=== PATIENT | female | born 1990 | race Caucasian/White ===

== ENCOUNTER 2017-03-29 14:26 | Emergency (ER) | payer OTHER, MEDICAID ==
[2017-03-29 14:47] LABS: URINE APPEARANCE CLEAR; URINE BILIRUBIN NEGATIVE (NEGATIVE); URINE BLOOD NEGATIVE (NEGATIVE); URINE COLOR YELLOW; URINE GLUCOSE (UA) NEGATIVE (NEGATIVE); URINE KETONE NEGATIVE (NEGATIVE); URINE LEUKOCYTE ESTERASE NEGATIVE (NEGATIVE); URINE NITRITE NEGATIVE (NEGATIVE); URINE PROTEIN NEGATIVE (NEGATIVE)
--- NOTE | 2017-03-29 14:52 | Emergency Department Record ---
History of Present Illness - General Chief complaint: Female Urogenital Problem Stated complaint: PAIN WHEN URINATING Time Seen by Provider: 03/29/17 14:46 Source: Patient Mode of Arrival: Ambulatory Limitations: No limitations - History of Present Illness Initial comments: 26 yo female presents with discomfort with urination. Onset was March 25 after rough intercourse with her . No fevers or chills. No back pain. No vaginal bleeding. She is having some burning and itching as well. No concern for STD. No NVD. No lesions. MD Complaint: Dysuria Onset/Timin -: Days(s) Location: [place], Perineum Severity scale (1-10): 4 Quality: Burning Consistency: Constant Improves with: None Worsens with: [place], Urination Patient : No Associated Symptoms: Denies other symptoms - Related Data Previous Rx's Medication Instructions Recorded Phenazopyridine HCl [Pyridium] 200 mg PO TID #6 tab 03/29/17 Allergies Allergy/AdvReac Type Severity Reaction Status Date / Time Iodinated Contrast- Oral and Allergy HIVES Verified 08/14/16 15:49 IV Dye [Iodinated Contrast Media - IV Dye] Travel Screening - Travel/Exposure Within Last 30 Days Have you traveled within the last 30 days?: No Review of Systems Constitutional: Denies: Chills, Fever, Malaise Eyes: Denies: Eye discharge ENT: Denies: Congestion, Throat pain Respiratory: Denies: Cough Cardiovascular: Denies: Chest pain, Syncope Endocrine: Denies: Fatigue Gastrointestinal: Denies: Abdominal pain, Diarrhea, Nausea, Vomiting Genitourinary: Reports: Dysuria, Frequency, Urgency, Other (itching and burning) . Denies: Discharge, Hematuria, Incontinence, Retention Musculoskeletal: Denies: Arthralgia, Back pain Skin: Denies: Bruising, Change in color, Rash Neurological: Denies: Headache Psychiatric: Denies: Anxiety Hematological/Lymphatic: Denies: Easy bleeding, Easy bruising, Swollen glands Past Medical History - SOCIAL HISTORY Smoking Status: Current every day smoker Alcohol Use: None Drug Use: None - RESPIRATORY Hx Respiratory Disorders: Yes Hx Asthma: Yes - CARDIOVASCULAR Hx Cardio Disorders: No - NEURO Hx Neuro Disorders: No - GI Hx GI Disorders: No - Hx Genitourinary Disorders: No - ENDOCRINE Hx Endocrine Disorders: No - MUSCULOSKELETAL Hx Musculoskeletal Disorders: No - PSYCH Hx Psych Problems: No - HEMATOLOGY/ONCOLOGY Hx Hematology/Oncology Disorders: No Family Medical History Any Significant Family History?: Yes Hx Cancer: Grandparents Hx Stroke: Grandparents Physical Exam - General General Appearance: Alert, Oriented x3, Cooperative, No acute distress Limitations: No limitations - Head Head exam: Normal inspection - Eye Eye exam: Normal appearance - ENT ENT exam: Normal exam Ear exam: Normal external inspection Nasal Exam: Normal inspection - Neck Neck exam: Normal inspection - GI/Abdominal GI/Abdominal exam: Soft. negative: Tenderness - Rectal Rectal exam: Deferred - exam: Normal bimanual exam, Normal external exam, Normal speculum exam, Vaginal discharge (minimal thin white). negative: Abnormal external exam, Adnexal mass (L), Adnexal mass (R), Adnexal tenderness (L), Adnexal tenderness ( R), Cervical discharge, cervical motion tenderness, Vaginal bleeding, Vaginal erythema - Extremities Extremities exam: Normal inspection - Back Back exam: Denies: CVA tenderness (R), CVA tenderness (L) - Neurological Neurological exam: Alert, Oriented X3 - Psychiatric Psychiatric exam: Normal affect, Normal mood - Skin Skin exam: Dry, Intact, Normal color, Warm Course Vital Signs 03/29/17 14:33 Temperature 98.3 F Pulse Rate 70 Respiratory 20 Rate Blood Pressure 108/62 - Reevaluation(s) Reevaluation #1: UA is normal 03/29/17 14:53 Reevaluation #2: Wet prep is negative 03/29/17 15:17 Disposition Disposition: Discharge Clinical Impression: Dysuria Vaginitis Qualifiers: Chronicity: acute Qualified Code(s): N76.0 - Acute vaginitis Disposition: Home, Self-Care Condition: (1) Good Instructions: Dysuria (ED) Additional Instructions: Stay well hydrated Return if worse, fever, pain, blood in the urine or any new concerns Follow up with your doctor or OBGYN this week For the next 2 days try the Pyridum for discomfort with urination Prescriptions: Phenazopyridine HCl [Pyridium] 200 mg PO TID #6 tab Forms: Patient Portal Access Time of Disposition: 15:20 Quality - Quality Measures Quality Measures: N/A - Blood Pressure Screening View Details: Yes Blood Pressure Classification: Normal BP Reading Systolic Measurement: 108 Diastolic Measurement: 62 Screening for High Blood Pressure: < Normal BP, F/U Not Required > [G8783] Normal BP Follow-up Interventions: No follow-up required
[2017-03-31 17:01] LABS: GC SPECIMEN TYPE Vaginal
== END 2017-03-29 15:43 | disposition home or self-care (01) ==
LOC: ER 14:26
DX: N76.0 Acute vaginitis (principal); R30.0 Dysuria
CPT/HCPCS: 99284 ×2; 81003; 81025; Q0111; 87210

== ENCOUNTER 2017-06-14 00:41 | Emergency (ER) | payer OTHER, MEDICAID ==
[2017-06-14] MEDS ORDERED: KETOROLAC 30 MG/ML VIAL IVP ONE (00:51)
--- NOTE | 2017-06-14 00:55 | Emergency Department Record ---
History of Present Illness - General Stated Complaint: "CYST RUPTERING" Time Seen by Provider: 06/14/17 00:50 Source: Patient Mode of Arrival: Ambulatory Limitations: No limitations - History of Present Illness Initial Comments: 26 yo female presents to ED stating that she believes that her "ovarian cyst is rupturing". Patient reports that her symptoms began approximately 1 hours prior to arrival, reports pain was sudden-onset. Patient reports similar symptoms with previous cysts. Patient denies abnormal vaginal discharge, urinary symptoms, fever, nausea, vomiting, or change in stools. Patient denies previous abdominal surgeries as well. MD Complaint: Abdominal pain Onset/Timin -: Hour(s) Location: Suprapubic Radiation: None Migration to: No migration Severity: Moderate Quality: Sharp, Stabbing Consistency: Constant Improves With: Nothing Worsens With: Movement Associated Symptoms: Denies other symptoms Treatments Prior to Arrival: NSAIDs - Related Data Patient : No Previous Rx's Medication Instructions Recorded Ibuprofen [Motrin] 800 mg PO Q6H PRN #30 tab 06/14/17 Allergies Allergy/AdvReac Type Severity Reaction Status Date / Time Iodinated Contrast- Oral and Allergy HIVES Verified 08/14/16 15:49 IV Dye [Iodinated Contrast Media - IV Dye] Review of Systems Constitutional: Denies: Chills, Fever, Malaise, Night sweats Eyes: Denies: Eye discharge, Eye pain ENT: Denies: Congestion, Ear pain, Epistaxis Respiratory: Denies: Cough, Dyspnea Cardiovascular: Denies: Chest pain, Dyspnea on exertion Endocrine: Denies: Fatigue, Heat or cold intolerance Gastrointestinal: Reports: Abdominal pain. Denies: Constipation, Nausea, Vomiting Genitourinary: Denies: Dysuria, Frequency, Incontinence, Retention Musculoskeletal: Denies: Arthralgia, Back pain, Gout, Joint swelling Skin: Denies: Bruising, Change in color Neurological: Denies: Abnormal gait, Confusion, Headache, Seizure Psychiatric: Denies: Anxiety Hematological/Lymphatic: Denies: Anemia, Blood Clots Past Medical History - SOCIAL HISTORY Smoking Status: Current every day smoker Drug Use: None - RESPIRATORY Hx Respiratory Disorders: Yes Hx Asthma: Yes - CARDIOVASCULAR Hx Cardio Disorders: No - NEURO Hx Neuro Disorders: No - GI Hx GI Disorders: No - Hx Genitourinary Disorders: No - ENDOCRINE Hx Endocrine Disorders: No - MUSCULOSKELETAL Hx Musculoskeletal Disorders: No - PSYCH Hx Psych Problems: No - HEMATOLOGY/ONCOLOGY Hx Hematology/Oncology Disorders: No Family Medical History Hx Cancer: Grandparents Hx Stroke: Grandparents Physical Exam - General General Appearance: Alert, Oriented x3, Cooperative, Mild distress Limitations: No limitations - Head Head exam: Atraumatic, Normocephalic, Normal inspection Head exam detail: negative: Abrasion, Contusion, Mann's sign, General tenderness, Hematoma, Laceration - Eye Eye exam: Normal appearance. negative: Conjunctival injection, Periorbital swelling, Periorbital tenderness, Scleral icterus - ENT Ear exam: negative: Auricular hematoma, Auricular trauma Nasal Exam: negative: Active bleeding, Discharge, Dried blood, Foreign body Mouth exam: negative: Drooling, Laceration, Muffled voice, Tongue elevation - Neck Neck exam: Normal inspection. negative: Meningismus, Tenderness - Respiratory Respiratory exam: Normal lung sounds bilaterally. negative: Rales, Respiratory distress, Rhonchi, Stridor - Cardiovascular Cardiovascular Exam: Regular rate, Normal rhythm, Normal heart sounds - GI/Abdominal GI/Abdominal exam: Soft, Tenderness, Other (TTP LLQ>RLQ on examination, no rebound or guarding present). negative: Rebound, Rigid - Rectal Rectal exam: Deferred - exam: Deferred - Extremities Extremities exam: Normal inspection. negative: Calf tenderness, Pedal edema, Tenderness - Back Back exam: Denies: CVA tenderness (R), CVA tenderness (L) - Neurological Neurological exam: Alert, Normal gait, Oriented X3 - Psychiatric Psychiatric exam: Normal affect, Normal mood - Skin Skin exam: Normal color. negative: Abrasion Type of lesion: negative: abrasion Course - Reevaluation(s) Reevaluation #1: 06/14/17 02:09 Labs reviewed and are grossly unremarkable for an acute process. CT Abdomen and Pelvis: Infiltration of the fat along the paracolic gutters, small amount FF pelvis, trace FF Baca's pouch, correlate for PID. Patient was updated on all results and reports significant improvement in her pain symptoms, reviewed all laboratory and CT findings with the patient. Offered pelvic examination to exclude the possibility of PID, patient declined stating that her symptoms are likely the result of a ruptured cyst, denies vaginal discharge or pain symptoms. Patient appears stable for discharge at this time. Medical Decision Making - Lab Data Result diagrams: 06/14/17 01:08 06/14/17 01:08 Disposition Disposition: Discharge Clinical Impression: Pelvic pain Ovarian cyst Qualifiers: Laterality: unspecified laterality Qualified Code(s): N83.209 - Unspecified ovarian cyst, unspecified side Disposition: Home, Self-Care Condition: (2) Stable Instructions: Pelvic Pain in Women (ED) Additional Instructions: Return to ED if your symptoms worsen or if you have any concerns. Motrin 800 mg as directed. Follow-up with your family doctor/OB in 1-3 days as directed. Prescriptions: Ibuprofen [Motrin] 800 mg PO Q6H PRN #30 tab PRN Reason: Pain - Moderate (5-7) Time of Disposition: 02:13 Quality - Quality Measures Quality Measures: N/A - Blood Pressure Screening Does Patient Have Any of the Following: No Blood Pressure Classification: Normal BP Reading Systolic Measurement: 112 Diastolic Measurement: 66 Screening for High Blood Pressure: < Normal BP, F/U Not Required > [G8783]
[2017-06-14] MEDS ORDERED: 0.9 % SODIUM CHLORIDE 1000ML 1,000 ML IV SCH (01:00)
[2017-06-14 01:15] LABS: BASO % 0.3 % (0-6); EOS % 2.9 % (0-6); HEMATOCRIT 38.6 % (35.0-47.0); HEMOGLOBIN 13.5 gm/dl (11.6-16.0); LYMPH % 42.1 % (16-45); MEAN CELL VOLUME 97.5 fl (81-97); MEAN CORPUSCULAR HEMOGLOBIN 34.1 pg (27-33); MONO % 7.7 % (0-9); PLATELET COUNT 218 K/uL (130-400); RED BLOOD COUNT 3.96 M/uL (3.80-5.40); RED CELL DISTRIBUTION WIDTH 12.8 % (11.5-14.5); WHITE BLOOD COUNT W/O DIFF 7.9 K/uL (4.2-12.2)
[2017-06-14 01:20] LABS: URINE APPEARANCE CLEAR; URINE BILIRUBIN NEGATIVE (NEGATIVE); URINE BLOOD NEGATIVE (NEGATIVE); URINE COLOR YELLOW; URINE GLUCOSE (UA) NEGATIVE (NEGATIVE); URINE KETONE NEGATIVE (NEGATIVE); URINE LEUKOCYTE ESTERASE NEGATIVE (NEGATIVE); URINE NITRITE NEGATIVE (NEGATIVE); URINE PROTEIN NEGATIVE (NEGATIVE); URINE UROBILINOGEN 0.2 E.U./dL (0.20 - 1.00)
[2017-06-14 01:21] LABS: HCG,QUALITATIVE URINE NEGATIVE (NEGATIVE)
[2017-06-14 01:33] LABS: ALB/GLOB RATIO 1.6 (1.1-1.8); ALBUMIN 4.2 g/dL (4.0-5.0); ALKALINE PHOSPHATASE 62 U/L (35-104); ALT/SGPT 12 U/L (<33); AST/SGOT 12 U/L (10.0-35.0); BLOOD UREA NITROGEN 9 mg/dL (6-20); CREATININE 0.4 mg/dL (0.5-0.9); EST GLOMERULAR FILTRATION RATE > 60 mL/min; GLUCOSE,RANDOM 93 mg/dL (74-109); TOTAL PROTEIN 6.8 g/dL (6.6-8.7)
--- NOTE | 2017-06-15 15:50 | CT SCAN REPORT ---
DATE: 06/14/2017 at 1:35 a.m. EXAM: CT SCAN OF THE ABDOMEN AND PELVIS WITHOUT CONTRAST. HISTORY: Lower abdominal pain and pelvic pain for the past two hours. TECHNIQUE: Standard CT imaging of the abdomen and pelvis was performed without contrast. COMPARISON: 08/04/2016. FINDINGS: The lung bases are clear. The liver, gallbladder, biliary tree, pancreas, spleen, and adrenal glands are normal. The kidneys and ureters are normal. The aorta is normal in caliber. There is no retroperitoneal lymphadenopathy. The large and small bowel loops, including the appendix, are normal. There is no pneumoperitoneum. There is a complex cyst within the left ovary measuring 3.7 x 3.3 cm. This likely represents a hemorrhagic cyst. A small amount of associated fluid is present within the posterior cul de sac. An IUD is present. The right ovary is normal. The urinary bladder is unremarkable. There are no acute osseus abnormalities. IMPRESSION: 1. A 3.7 X 3.3 CM COMPLEX CYST WITHIN THE LEFT OVARY LIKELY REPRESENTING A HEMORRHAGIC CYST. 2. MILD FREE FLUID WITHIN THE POSTERIOR CUL DE SAC. 3. THE REMAINING PORTIONS OF THE ABDOMEN AND PELVIS ARE NORMAL. JOB NUMBER: [id number] MTDD
== END 2017-06-14 02:28 | disposition home or self-care (01) ==
LOC: ER 00:41
DX: N83.202 Unspecified ovarian cyst, left side (principal); R10.2 Pelvic and perineal pain
CPT/HCPCS: 99284 ×2; 96374; 85025; 80053; 81003; 81025; 74176; J1885; J7030

== ENCOUNTER 2018-01-08 21:20 | Emergency (ER) | payer BC, MEDICAID ==
[2018-01-08] MEDS ORDERED: ONDANSETRON HCL IV 4 MG/2 ML VIAL IV ONE (21:45)
[2018-01-08] MEDS ORDERED: 0.9 % SODIUM CHLORIDE 1,000 ML BAG IV ONE (21:45)
[2018-01-08] MEDS ORDERED: KETOROLAC 30 MG/ML VIAL IVP ONE (21:45)
[2018-01-08 21:59] LABS: BASO % 0.5 % (0-6); EOS % 2.8 % (0-6); GRAN % 41.8 % (47-80); HEMATOCRIT 42.1 % (35.0-47.0); LYMPH % 46.2 % (16-45); MEAN CELL VOLUME 98.8 fl (81-97); MEAN CORPUSCULAR HEMOGLOBIN 32.9 pg (27-33); MEAN CORPUSCULAR HGB CONC 33.3 g/dl (32-36); MEAN PLATELET VOLUME 10.5 fl (7.4-10.4); MONO % 8.7 % (0-9); PLATELET COUNT 229 K/uL (130-400); RED BLOOD COUNT 4.26 M/uL (3.80-5.40); RED CELL DISTRIBUTION WIDTH 12.8 % (11.5-14.5); URINE APPEARANCE CLEAR; URINE BILIRUBIN NEGATIVE (NEGATIVE); URINE BLOOD NEGATIVE (NEGATIVE); URINE COLOR YELLOW; URINE GLUCOSE (UA) NEGATIVE (NEGATIVE); URINE KETONE NEGATIVE (NEGATIVE); URINE LEUKOCYTE ESTERASE NEGATIVE (NEGATIVE); URINE NITRITE NEGATIVE (NEGATIVE); URINE PROTEIN NEGATIVE (NEGATIVE); URINE UROBILINOGEN 0.2 E.U./dL (0.20 - 1.00); WHITE BLOOD COUNT W/O DIFF 6.1 K/uL (4.2-12.2)
[2018-01-08 22:01] LABS: HCG,QUALITATIVE URINE NEGATIVE (NEGATIVE)
[2018-01-08 22:09] LABS: BLOOD UREA NITROGEN 7 mg/dL (6-20); CREATININE 0.5 mg/dL (0.5-0.9); EST GLOMERULAR FILTRATION RATE > 60 mL/min
[2018-01-08 22:10] LABS: TOTAL PROTEIN 6.8 g/dL (6.6-8.7)
[2018-01-08 22:12] LABS: GLUCOSE,RANDOM 89 mg/dL (74-109)
[2018-01-08 22:14] LABS: ALB/GLOB RATIO 1.8 (1.1-1.8); ALBUMIN 4.4 g/dL (4.0-5.0); ALKALINE PHOSPHATASE 63 U/L (35-104); ALT/SGPT 26 U/L (<33); AST/SGOT 23 U/L (10.0-35.0)
[2018-01-08 22:15] LABS: LIPASE 20 U/L (13-60)
--- NOTE | 2018-01-08 22:29 | Emergency Department Record ---
History of Present Illness - General Chief Complaint: Abdominal Pain Stated Complaint: LOWER ABD PAIN Time Seen by Provider: 01/08/18 21:21 Source: Patient Mode of Arrival: Ambulatory Limitations: No limitations - History of Present Illness Initial Comments: pt is having lower abd pain what is intermittant and sharp. she states it does not feel like her ovarian pain or her ibs. she has had a few bouts of diarrhea and nausea. MD Complaint: Abdominal pain Onset/Timin -: Days(s) Location: Periumbilical, RLQ Radiation: None Severity scale (1-10): 4 Quality: Stabbing, Other Consistency: Constant Improves With: Nothing Worsens With: Eating, Movement Associated Symptoms: Diarrhea, Nausea - Related Data Patient : No Home Medications Medication Instructions Recorded Confirmed Last Taken Levonorgestrel [Mirena] 1 each IY DAILY 01/08/18 01/08/18 01/08/18 Allergies Allergy/AdvReac Type Severity Reaction Status Date / Time Iodinated Contrast- Oral and Allergy HIVES Verified 01/08/18 21:25 IV Dye Travel Screening - Travel/Exposure Within Last 30 Days Have you traveled within the last 30 days?: No - Travel Symptoms Symptom Screening: None Review of Systems Reviewed: No additional complaints except as noted below Constitutional: Reports: As per HPI. Denies: Chills, Fever, Malaise, Night sweats, Weakness, Weight change Eyes: Reports: As per HPI. Denies: Eye discharge, Eye pain, Photophobia, Vision change ENT: Reports: As per HPI. Denies: Congestion, Dental pain, Ear pain, Epistaxis , Hearing loss, Throat pain Respiratory: Reports: As per HPI. Denies: Cough, Dyspnea, Hemoptysis, Stridor, Wheezes Cardiovascular: Reports: As per HPI. Denies: Arrhythmia, Chest pain, Dyspnea on exertion, Edema, Murmurs, Orthopnea, Palpitations, Paroxysmal nocturnal dyspnea, Rheumatic Fever, Syncope Endocrine: Reports: As per HPI. Denies: Fatigue, Heat or cold intolerance, Polydipsia, Polyuria Gastrointestinal: Reports: As per HPI, Abdominal pain, Diarrhea, Nausea. Denies : Constipation, Hematemesis, Hematochezia, Melena, Vomiting Genitourinary: Reports: As per HPI. Denies: Abnormal menses, Discharge, Dyspareunia, Dysuria, Frequency, Hematuria, Incontinence, Retention, Urgency Musculoskeletal: Reports: As per HPI. Denies: Arthralgia, Back pain, Gout, Joint swelling, Myalgia, Neck pain Skin: Reports: As per HPI. Denies: Bruising, Change in color, Change in hair/ nails, Lesions, Pruritus, Rash Neurological: Reports: As per HPI. Denies: Abnormal gait, Confusion, Headache, Numbness, Paresthesias, Seizure, Tingling, Tremors, Vertigo, Weakness Psychiatric: Reports: As per HPI. Denies: Anxiety, Auditory hallucinations, Depression, Homicidal thoughts, Suicidal thoughts, Visual hallucinations Hematological/Lymphatic: Reports: As per HPI. Denies: Anemia, Blood Clots, Easy bleeding, Easy bruising, Swollen glands Past Medical History - SOCIAL HISTORY Smoking Status: Current every day smoker - RESPIRATORY Hx Respiratory Disorders: Yes Hx Asthma: Yes - CARDIOVASCULAR Hx Cardio Disorders: No - NEURO Hx Neuro Disorders: No - GI Hx GI Disorders: Yes Hx Irritable Bowel: Yes - Hx Genitourinary Disorders: Yes Comment:: Ovarian cysts; endometriosis - ENDOCRINE Hx Endocrine Disorders: No - MUSCULOSKELETAL Hx Musculoskeletal Disorders: No - PSYCH Hx Psych Problems: No - HEMATOLOGY/ONCOLOGY Hx Hematology/Oncology Disorders: No Family Medical History Any Significant Family History?: Yes Hx Cancer: Grandparents Hx Stroke: Grandparents Physical Exam - General General Appearance: Alert, Oriented x3, Cooperative, Mild distress - Head Head exam: Normal inspection - Eye Eye exam: Normal appearance, PERRL, EOMI Pupils: Normal accommodation - ENT ENT exam: Normal exam, Mucous membranes moist, Normal external ear exam, Normal orophraynx Ear exam: Normal external inspection. negative: External canal tenderness Nasal Exam: Normal inspection. negative: Discharge, Sinus tenderness Mouth exam: Normal external inspection, Tongue normal Teeth exam: Normal inspection. negative: Dental caries Throat exam: Normal inspection. negative: Tonsillar erythema, Tonsillar exudate - Neck Neck exam: Normal inspection, Full ROM. negative: Tenderness - Respiratory Respiratory exam: Normal lung sounds bilaterally. negative: Respiratory distress - Cardiovascular Cardiovascular Exam: Regular rate, Normal rhythm, Normal heart sounds - GI/Abdominal GI/Abdominal exam: Soft, Normal bowel sounds, Tenderness (lower quads) - Rectal Rectal exam: Deferred - exam: Normal bimanual exam, Normal external exam, Normal speculum exam - Extremities Extremities exam: Normal inspection, Full ROM, Normal capillary refill. negative: Tenderness - Back Back exam: Reports: Normal inspection, Full ROM. Denies: Muscle spasm, Rash noted, Tenderness - Neurological Neurological exam: Alert, CN II-XII intact, Normal gait, Oriented X3 - Psychiatric Psychiatric exam: Normal affect, Normal mood - Skin Skin exam: Dry, Intact, Normal color, Warm Course Vital Signs 01/08/18 21:27 Temperature 97.9 F Pulse Rate [ 95 H Pulse Ox Probe] Respiratory 20 Rate Blood Pressure 119/89 [Left Arm] Pulse Ox 99 Medical Decision Making - Lab Data Result diagrams: 01/08/18 21:52 01/08/18 21:52 Lab Results 01/08/18 01/08/18 01/08/18 Range/Units 21:52 21:52 21:52 WBC 6.1 (4.2-12.2) K/uL RBC 4.26 (3.80-5.40) M/uL Hgb 14.0 (11.6-16.0) gm/dl Hct 42.1 (35.0-47.0) % MCV 98.8 H (81-97) fl MCH 32.9 (27-33) pg MCHC 33.3 (32-36) g/dl RDW 12.8 (11.5-14.5) % Plt Count 229 (130-400) K/uL MPV 10.5 H (7.4-10.4) fl Gran % 41.8 L (47-80) % Lymphocytes % 46.2 H (16-45) % Monocytes % 8.7 (0-9) % Eosinophils % 2.8 (0-6) % Basophils % 0.5 (0-6) % Sodium 138 (136-145) mmol/L Potassium 3.7 (3.4-4.5) mmol/L Chloride 100 (98-107) mmol/L Carbon Dioxide 28.0 (22-29) mmol/L Anion Gap 10.0 (7-16) BUN 7 (6-20) mg/dL Creatinine 0.5 (0.5-0.9) mg/dL Estimated GFR > 60 mL/min Random Glucose 89 (74-109) mg/dL Calcium 9.4 (8.6-10.0) mg/dL Total Bilirubin 0.30 (0.2-1.0) mg/dL AST 23 (10.0-35.0) U/L ALT 26 (<33) U/L Alkaline Phosphatase 63 (35-104) U/L Total Protein 6.8 (6.6-8.7) g/dL Albumin 4.4 (4.0-5.0) g/dL Globulin 2.4 (1.4-4.8) gm/dL Albumin/Globulin Ratio 1.8 (1.1-1.8) Lipase 20 (13-60) U/L Urine Color Yellow Urine Appearance Clear Urine pH 7.0 (5.0-8.0) Ur Specific [place] <= 1.005 (1.002-1.030) Urine Protein Negative (NEGATIVE) Urine Glucose (UA) Negative (NEGATIVE) Urine Ketones Negative (NEGATIVE) Urine Blood Negative (NEGATIVE) Urine Nitrite Negative (NEGATIVE) Urine Bilirubin Negative (NEGATIVE) Urine Urobilinogen 0.2 (0.20 - 1.00) E.U./dL Ur Leukocyte Esterase Negative (NEGATIVE) Urine HCG, Qual Negative (NEGATIVE) Disposition Disposition: Discharge Clinical Impression: Abdominal pain Qualifiers: Abdominal location: lower abdomen, unspecified Qualified Code(s): R10.30 - Lower abdominal pain, unspecified Disposition: Home, Self-Care Condition: (1) Good Instructions: Abdominal Pain (ED) Additional Instructions: follow up with family doctor. return sooner if worse. recheck if having rlq pain in 24 hours. Forms: Patient Portal Access Quality - Quality Measures Quality Measures: N/A - Blood Pressure Screening Does Patient Have Any of the Following: No Blood Pressure Classification: Normal BP Reading Systolic Measurement: 102 Diastolic Measurement: 60 Screening for High Blood Pressure: < Normal BP, F/U Not Required > [G8783]
--- NOTE | 2018-01-09 17:29 | CT SCAN REPORT ---
EXAM: CT SCAN ABDOMEN/PELVIS WO CONTRAST HISTORY: PAIN IN LOWER ABDOMEN COMING IN WAVES. DIARRHEA ONE DAY AGO. TECHNIQUE: Helical CT examination of the abdomen and pelvis is performed without oral or intravenous contrast administration. Lack of oral and IV contrast utilization limits evaluation of the bowel and solid viscera respectively. COMPARISON: CT abdomen and pelvis without contrast dated 06/14/2017. FINDINGS: There is minimal dependent atelectasis in each lung base. The visualized lung bases are otherwise clear. No pleural or pericardial effusion. The heart is not enlarged. The liver, spleen, pancreas, adrenal glands, and kidneys remain normal in appearance. The gallbladder is unremarkable and no biliary ductal dilatation is seen. No definite intra-abdominal nor retroperitoneal lymphadenopathy is seen though evaluation is mildly limited due to a paucity of intra-abdominal and retroperitoneal fat. An intrauterine contraceptive device is in place appearing satisfactory in position. No pelvic mass, lymphadenopathy, or free pelvic fluid is seen. No intrinsic urinary bladder abnormality is identified. No gross bowel dilatation nor bowel wall thickening is seen. The appendix is visualized coiled in the right hemipelvis appearing normal. No free intraperitoneal air. Tiny fat-filled umbilical hernia redemonstrated. No lytic or blastic bone lesion. IMPRESSION: 1. NO CT EVIDENCE OF AN ACUTE INTRA-ABDOMINAL NOR INTRAPELVIC PROCESS. 2. INTRAUTERINE CONTRACEPTIVE DEVICE IN PLACE. 3. NORMAL APPENDIX. 4. MINIMAL DEPENDENT ATELECTASIS IN EACH LUNG BASE. JOB NUMBER: [id number] MTDD
[2018-01-10 00:23] LABS: GC SPECIMEN TYPE Cervix
== END 2018-01-09 00:50 | disposition home or self-care (01) ==
LOC: ER 21:20
DX: R10.31 Right lower quadrant pain (principal); R10.33 Periumbilical pain; R11.0 Nausea; R19.7 Diarrhea, unspecified; F17.210 Nicotine dependence, cigarettes, uncomplicated
CPT/HCPCS: 74176; 80053; 81003; 81025; 83690; 85025; 87210; 96361; 96374; 96375; 99284; J1885; J2405; J7030

== ENCOUNTER 2018-05-10 15:19 | Emergency (ER) | payer BC, MEDICAID ==
--- NOTE | 2018-05-10 15:49 | Emergency Department Record ---
History of Present Illness - General Chief Complaint: Headache Migraine Stated Complaint: migraine Time Seen by Provider: 05/10/18 15:41 Source: Patient Mode of Arrival: Ambulatory Limitations: No limitations - History of Present Illness Initial Comments: 27 yo female presents with a headache. She reports it is typical of her migraines. She gets light and noise sensitivity, nausea, vomits. She has had migraines for about the last 7-8 years. She was asleep today when it started but usually she has "squiggly lines" as an aura. No other recent changes in her health. No new or very different symptoms today from prior headache/ migraines. PCP is Dr Majors. PALMA Complaint: Headache Onset/Timin -: Hour(s) Onset Description: Awoke with symptoms Location: Diffuse Severity: Moderate Severity scale (1-10): 7 Quality: Similar to previous headaches, Other Consistency: Constant Improves With: Nothing Worsens With: None Associated Symptoms: Photophobia, Sensitivity to sound Treatment Prior to Arrival Comment:: Excedrin migraine - Related Data Allergies Allergy/AdvReac Type Severity Reaction Status Date / Time Iodinated Contrast- Oral and Allergy HIVES Verified 05/10/18 15:31 IV Dye Travel Screening - Travel/Exposure Within Last 30 Days Have you traveled within the last 30 days?: No - Travel/Exposure Within Last Year Have you traveled outside the [place] in the last year?: No - Additonal Travel Details Have you been exposed to anyone with a communicable illness?: No - Travel Symptoms Symptom Screening: None Review of Systems Constitutional: Denies: Chills, Fever, Weakness Eyes: Denies: Eye discharge ENT: Denies: Congestion, Throat pain Respiratory: Denies: Cough, Dyspnea Cardiovascular: Denies: Chest pain, Palpitations, Syncope Endocrine: Denies: Fatigue, Polydipsia Gastrointestinal: Reports: Nausea, Vomiting. Denies: Abdominal pain, Diarrhea Genitourinary: Denies: Dysuria Musculoskeletal: Denies: Arthralgia, Back pain, Myalgia Skin: Denies: Bruising, Change in color, Rash Neurological: Reports: Headache. Denies: Confusion, Numbness, Tingling, Vertigo , Weakness Psychiatric: Denies: Anxiety Hematological/Lymphatic: Denies: Easy bleeding, Easy bruising Past Medical History - SOCIAL HISTORY Smoking Status: Current every day smoker Alcohol Use: None Drug Use: None - RESPIRATORY Hx Respiratory Disorders: Yes Hx Asthma: Yes - CARDIOVASCULAR Hx Cardio Disorders: No - NEURO Hx Neuro Disorders: No - GI Hx GI Disorders: No Hx Irritable Bowel: Yes - Hx Genitourinary Disorders: No Comment:: Ovarian cysts; endometriosis - ENDOCRINE Hx Endocrine Disorders: No - MUSCULOSKELETAL Hx Musculoskeletal Disorders: No - PSYCH Hx Psych Problems: No - HEMATOLOGY/ONCOLOGY Hx Hematology/Oncology Disorders: No Family Medical History Any Significant Family History?: Yes Hx Cancer: Grandparents Hx Stroke: Grandparents Physical Exam - General General Appearance: Alert, Oriented x3, Cooperative, No acute distress Limitations: No limitations - Head Head exam: Normal inspection - Eye Eye exam: Normal appearance. negative: Conjunctival injection, Scleral icterus - ENT ENT exam: Normal exam, Mucous membranes dry, Normal orophraynx. negative: Mucous membranes moist Ear exam: Normal external inspection Nasal Exam: Normal inspection Mouth exam: Normal external inspection - Neck Neck exam: Normal inspection, Full ROM. negative: Tenderness - Respiratory Respiratory exam: Normal lung sounds bilaterally. negative: Respiratory distress - Cardiovascular Cardiovascular Exam: Regular rate, Normal rhythm, Normal heart sounds - GI/Abdominal GI/Abdominal exam: Soft. negative: Tenderness - Rectal Rectal exam: Deferred - exam: Deferred - Extremities Extremities exam: Normal inspection, Full ROM, Normal capillary refill. negative: Tenderness - Neurological Neurological exam: Alert, CN II-XII intact, Oriented X3. negative: Altered, Motor sensory deficit - Psychiatric Psychiatric exam: Normal affect, Normal mood - Skin Skin exam: Dry, Intact, Normal color, Warm Course Vital Signs 05/10/18 15:32 Temperature 97.9 F Pulse Rate 82 Respiratory 20 Rate Blood Pressure 119/81 Pulse Ox 98 - Reevaluation(s) Reevaluation #1: 05/10/18 16:40 The patient is feeling much better. Her headache and nausea are essentially gone We discussed home care, follow up and reasons to return I encouraged her to discussed migraines with her PCP for preventative measures as well as acute migraines. Disposition Disposition: Discharge Clinical Impression: Migraines Disposition: Home, Self-Care Condition: (1) Good Instructions: Migraine Headache (ED) Additional Instructions: Rest and stay well hydrated Return if the headache returns, vomiting or any new concerns or symptoms Follow up this ER visit with your doctor to discuss your migraines. Forms: Patient Portal Access Time of Disposition: 16:42 Quality - Quality Measures Quality Measures: N/A - Blood Pressure Screening Does Patient Have Any of the Following: No Blood Pressure Classification: Pre-Hypertensive BP Reading Systolic Measurement: 119 Diastolic Measurement: 81 Screening for High Blood Pressure: < Pre-Hypertensive BP, F/U Documented > [ G8950] Pre-Hypertensive Follow-up Interventions: Referral to alternative/primary care provider.
[2018-05-10] MEDS ORDERED: 0.9 % SODIUM CHLORIDE 1,000 ML BAG IV ONE (15:51)
[2018-05-10] MEDS ORDERED: KETOROLAC 30 MG/ML VIAL IVP STA (15:51)
[2018-05-10] MEDS ORDERED: METOCLOPRAMIDE HCL 10 MG/2 ML VIAL IVP ONE (15:51)
[2018-05-10] MEDS ORDERED: DIPHENHYDRAMINE HCL 50 MG/ML VIAL IVP ONE (15:51)
[2018-05-10] MEDS ORDERED: DEXAMETHASONE 4 MG/ML 1ML VIAL IVP ONE (16:40)
== END 2018-05-10 16:55 | disposition home or self-care (01) ==
LOC: ER 15:19
DX: G43.909 Migraine, unspecified, not intractable, without status migrainosus (principal); R11.2 Nausea with vomiting, unspecified; H53.149 Visual discomfort, unspecified; F17.210 Nicotine dependence, cigarettes, uncomplicated
CPT/HCPCS: 96361; 96374; 96375; 99284; J1200; J1885; J2765; J7030

== ENCOUNTER 2018-08-23 20:20 | Emergency (ER) | payer BC ==
[2018-08-23] MEDS ORDERED: IBUPROFEN 600 MG TABLET PO ONE (20:35)
--- NOTE | 2018-08-23 20:37 | Emergency Department Record ---
History of Present Illness - General Chief complaint: Flank Pain Stated complaint: LT FLANK JPAIN Time Seen by Provider: 08/23/18 20:33 Source: Patient Mode of Arrival: Ambulatory Limitations: No limitations - History of Present Illness Initial comments: 27 yo female presents with intermittent left flank pain that started yesterday. The pain is sharp. No hematuria or dysuria. No abdominal pain. No fevers, chills, nausea, or vomiting. She is in her usual state of health. She is on control. No vaginal bleeding or discharge. No history of renal stones. MD Complaint: Other (Flank Pain on the left) -: Days(s) (1) Radiation: L flank Severity: Moderate Quality: Aching Consistency: Intermittent Improves with: None Worsens with: None Patient : No Associated Symptoms: Denies other symptoms - Related Data Additional Female Hx Detail: Contraception Home Medications Medication Instructions Recorded Confirmed Last Taken Prednisone [Prednisone 20Mg] 20 mg PO DAILY 08/23/18 08/23/18 Unknown Allergies Allergy/AdvReac Type Severity Reaction Status Date / Time Iodinated Contrast- Oral and Allergy HIVES Verified 05/10/18 15:31 IV Dye Review of Systems Constitutional: Denies: Chills, Fever, Malaise Eyes: Denies: Eye discharge, Vision change ENT: Denies: Congestion, Throat pain Respiratory: Denies: Cough Cardiovascular: Denies: Chest pain Endocrine: Denies: Fatigue Gastrointestinal: Denies: Abdominal pain, Diarrhea, Nausea, Vomiting Genitourinary: Denies: Abnormal menses, Dysuria, Hematuria, Urgency Musculoskeletal: Reports: Back pain. Denies: Arthralgia, Myalgia Skin: Denies: Bruising, Change in color, Rash Neurological: Denies: Headache, Numbness, Weakness Psychiatric: Denies: Anxiety Hematological/Lymphatic: Denies: Blood Clots, Easy bleeding, Easy bruising Past Medical History - SOCIAL HISTORY Smoking Status: Current every day smoker Drug Use: None - RESPIRATORY Hx Respiratory Disorders: Yes Hx Asthma: Yes - CARDIOVASCULAR Hx Cardio Disorders: No - NEURO Hx Neuro Disorders: No - GI Hx GI Disorders: No Hx Irritable Bowel: Yes - Hx Genitourinary Disorders: No Comment:: Ovarian cysts; endometriosis - ENDOCRINE Hx Endocrine Disorders: No - MUSCULOSKELETAL Hx Musculoskeletal Disorders: No - PSYCH Hx Psych Problems: No - HEMATOLOGY/ONCOLOGY Hx Hematology/Oncology Disorders: No Family Medical History Hx Cancer: Grandparents Hx Stroke: Grandparents Physical Exam - General General Appearance: Alert, Oriented x3, Cooperative, No acute distress Limitations: No limitations - Head Head exam: Normal inspection - Eye Eye exam: Normal appearance. negative: Conjunctival injection, Scleral icterus - ENT ENT exam: Normal exam, Mucous membranes moist Ear exam: Normal external inspection Nasal Exam: Normal inspection Mouth exam: Normal external inspection - Neck Neck exam: Normal inspection - Respiratory Respiratory exam: Normal lung sounds bilaterally. negative: Respiratory distress - Cardiovascular Cardiovascular Exam: Regular rate, Normal rhythm, Normal heart sounds - GI/Abdominal GI/Abdominal exam: Soft. negative: Distended, Guarding, Tenderness - Rectal Rectal exam: Deferred - exam: Deferred - Extremities Extremities exam: Normal inspection. negative: Pedal edema - Back Back exam: Reports: CVA tenderness (L), Full ROM, Tenderness. Denies: CVA tenderness (R), Paraspinal tenderness, Vertebral tenderness - Neurological Neurological exam: Alert, Normal gait, Oriented X3 - Psychiatric Psychiatric exam: Normal affect, Normal mood. negative: Agitated, Anxious - Skin Skin exam: Dry, Intact, Normal color, Warm Course Vital Signs 08/23/18 20:28 Temperature 98.7 F Pulse Rate [ 96 H Pulse Ox Probe] Respiratory 20 Rate Blood Pressure 114/73 [Left Arm] Pulse Ox 97 - Reevaluation(s) Reevaluation #1: 08/23/18 20:50 The UA is negative. No blood. No signs of inflection 08/23/18 21:[address] scan was negative We discussed the results We discussed conservative treatment with Motrin and discussed the warming signs for reasons to return Disposition Disposition: Discharge Clinical Impression: Left flank pain Disposition: Home, Self-Care Condition: (1) Good Instructions: Flank Pain (ED) Additional Instructions: Return if you have fever, vomiting, chills, blood in the urine, diarrhea or other concerns Forms: Patient Portal Access Time of Disposition: 21:30 Quality - Quality Measures Quality Measures: N/A - Blood Pressure Screening Does Patient Have Any of the Following: No Blood Pressure Classification: Normal BP Reading Systolic Measurement: 101 Diastolic Measurement: 64 Screening for High Blood Pressure: < Normal BP, F/U Not Required > [G8783]
[2018-08-23 20:47] LABS: URINE APPEARANCE CLEAR; URINE BILIRUBIN NEGATIVE (NEGATIVE); URINE BLOOD NEGATIVE (NEGATIVE); URINE COLOR YELLOW; URINE GLUCOSE (UA) NEGATIVE (NEGATIVE); URINE KETONE NEGATIVE (NEGATIVE); URINE LEUKOCYTE ESTERASE NEGATIVE (NEGATIVE); URINE NITRITE NEGATIVE (NEGATIVE); URINE PROTEIN NEGATIVE (NEGATIVE); URINE UROBILINOGEN 0.2 E.U./dL (0.20 - 1.00)
[2018-08-23 21:05] LABS: HCG,QUALITATIVE URINE NEGATIVE (NEGATIVE)
--- NOTE | 2018-08-25 05:24 | CT SCAN REPORT ---
EXAM: CT OF THE ABDOMEN AND PELVIS WITHOUT IV CONTRAST HISTORY: PAIN IN THE LOWER ABDOMEN, LEFT LOWER QUADRANT. TECHNIQUE: Helical CT scan of the abdomen and pelvis was obtained without intravenous or oral contrast. Comparison: CT of the abdomen and pelvis with contrast 08/04/[address] of the abdomen and pelvis without contrast 01/08/18. FINDINGS: The lung bases are clear. ABDOMEN AND PELVIS: Suboptimal evaluation of the solid organs without intravenous contrast. The liver has upper normal size. The spleen has normal size. No inflammatory changes of the pancreas. No renal or ureteral calculi. No hydronephrosis. The bowel has normal caliber. No inflammatory changes. The appendix is normal. The uterus is retroverted. An intrauterine device is present. There may be a dominant follicle in the left ovary. There is a tiny amount of physiologic fluid in the pelvis. The urinary bladder is unremarkable. The bony structures are unremarkable. IMPRESSION: 1. NO ACUTE ABNORMALITIES IDENTIFIED IN THE ABDOMEN AND PELVIS TO EXPLAIN THIS PATIENT'S ABDOMINAL PAIN. 2. NORMAL APPENDIX. JOB NUMBER: [id number] [facility]
== END 2018-08-23 21:51 | disposition home or self-care (01) ==
LOC: ER 20:20
DX: R10.32 Left lower quadrant pain (principal); F17.210 Nicotine dependence, cigarettes, uncomplicated
CPT/HCPCS: 74150; 74176; 81003; 81025; 99283; 99284

== ENCOUNTER 2019-02-18 15:28 | Emergency (ER) | payer BC ==
[2019-02-18] MEDS ORDERED: MECLIZINE 25 MG TABLET PO ONE (15:46)
--- NOTE | 2019-02-18 15:50 | Emergency Department Record ---
History of Present Illness - General Chief Complaint: Dizziness Stated Complaint: DIZZINESS, "DONT FEEL RIGHT". Time Seen by Provider: 02/18/19 15:30 Source: Patient Mode of Arrival: Ambulatory Limitations: No limitations - History of Present Illness Initial Comments: The patient is here due to not feeling well for one day. She has had dizziness which she describes as just "not feeling right" for a day. The onset was yesterday and then today she developed watery diarrhea and nausea. There has been no vomiting, TREVIZO, visual changes, weakness, numbness, speech problems, AP, fever, balance issues or blood in the stool. The patient has had similar dizzin ess in the past when she has not felt well. She did take an anti-diarrheal pill and the loose stools have stopped for now. MD Complaint: Dizziness, Lightheadedness Onset/Timin -: Days(s) Timing: Sudden onset Description: Off-balance History of Same: Yes History of Trauma: No Improves With: Nothing Worsens With: Nothing Associated Symptoms: Other - Alek Coma Scale Eye Response: (4) Open spontaneously Motor Response: (6) Obeys commands Verbal Response: (5) Oriented Alek Total: 15 - Related Data Home Medications Medication Instructions Recorded Confirmed Last Taken L.acidoph,Paracasei, B.lactis 1 each PO DAILY 02/18/19 02/18/19 02/18/19 [Probiotic] Previous Rx's Medication Instructions Recorded Meclizine HCl [Antivert] 25 mg PO Q8H #20 tablet 02/18/19 Allergies Allergy/AdvReac Type Severity Reaction Status Date / Time corn Allergy HYPERSENSIT Verified 02/18/19 15:46 IVITY Iodinated Contrast- Oral and Allergy HIVES Verified 05/10/18 15:31 IV Dye Travel Screening - Travel/Exposure Within Last 30 Days Have you traveled within the last 30 days?: No - Travel/Exposure Within Last Year Have you traveled outside the [place] in the last year?: No - Additonal Travel Details Have you been exposed to anyone with a communicable illness?: No - Travel Symptoms Symptom Screening: Diarrhea Review of Systems Constitutional: Denies: Chills, Fever Eyes: Denies: Eye discharge ENT: Denies: Congestion Respiratory: Denies: Cough, Dyspnea Cardiovascular: Denies: Arrhythmia, Chest pain Past Medical History - SOCIAL HISTORY Smoking Status: Current every day smoker Alcohol Use: None Drug Use: None - RESPIRATORY Hx Respiratory Disorders: Yes Hx Asthma: Yes - CARDIOVASCULAR Hx Cardio Disorders: No - NEURO Hx Neuro Disorders: Yes Comment:: hx of blackouts - GI Hx GI Disorders: Yes Hx Irritable Bowel: Yes - Hx Genitourinary Disorders: No Comment:: Ovarian cysts; endometriosis - ENDOCRINE Hx Endocrine Disorders: No - MUSCULOSKELETAL Hx Musculoskeletal Disorders: No - PSYCH Hx Psych Problems: No - HEMATOLOGY/ONCOLOGY Hx Hematology/Oncology Disorders: No Family Medical History Any Significant Family History?: No Hx Cancer: Grandparents Hx Stroke: Grandparents Physical Exam - General General Appearance: Alert, Oriented x3, Cooperative, No acute distress - Head Head exam: Atraumatic, Normocephalic, Normal inspection - Eye Eye exam: Normal appearance, PERRL, EOMI - ENT ENT exam: Normal exam, Mucous membranes moist, Normal external ear exam, Normal orophraynx, TM's normal bilaterally Throat exam: Normal inspection. negative: Tonsillar erythema, Tonsillar exudate - Neck Neck exam: Normal inspection, Full ROM. negative: Lymphadenopathy, Tenderness - Respiratory Respiratory exam: Normal lung sounds bilaterally. negative: Respiratory distress - Cardiovascular Cardiovascular Exam: Regular rate, Normal rhythm, Normal heart sounds - GI/Abdominal GI/Abdominal exam: Soft, Normal bowel sounds. negative: Tenderness - Extremities Extremities exam: Normal inspection, Full ROM, Normal capillary refill. negative: Tenderness - Neurological Neurological exam: Alert, Normal gait, Oriented X3, Other (Neg Drift and Rhomberg.). negative: Abnormal gait, Altered, Motor sensory deficit - Psychiatric Psychiatric exam: negative: Anxious - Skin Skin exam: negative: Rash Course Vital Signs 02/18/19 15:32 Temperature 98.8 F Pulse Rate 90 Respiratory 16 Rate Blood Pressure 140/80 Pulse Ox 100 - Reevaluation(s) Reevaluation #1: The patient is feeling better at this time and has no dizziness. She is up walking with no difficulty and denies any lightheadedness. I did discuss the normal lab tests and the need to continue the Antivert and anti-diarrheal medicine. She is to see her PCP for recheck if not better. 02/18/19 16:45 Medical Decision Making - Data Complexity MDM Data: Labs Ordered and/or Reviewed - Lab Data Result diagrams: 02/18/19 16:02 02/18/19 16:02 Disposition Disposition: Discharge Clinical Impression: Viral illness Disposition: Home, Self-Care Condition: (2) Stable Instructions: Dizziness (ED) Additional Instructions: Please drink plenty of fluids and take the Antivert as directed. Please see your doctor next week if not better and return to the ER for any worsening symptoms. Prescriptions: Meclizine HCl [Antivert] 25 mg PO Q8H #20 tablet Forms: Patient Portal Access Time of Disposition: 16:51 Quality - Quality Measures Quality Measures: N/A - Blood Pressure Screening View Details: Yes Does Patient Have Any of the Following: No Blood Pressure Classification: Pre-Hypertensive BP Reading Systolic Measurement: 140 Diastolic Measurement: 80 Screening for High Blood Pressure: < Pre-Hypertensive BP, F/U Documented > [G8950] Pre-Hypertensive Follow-up Interventions: Referral to alternative/primary care provider.
[2019-02-18 16:07] LABS: ABSOLUTE NEUTROPHIL COUNT 6.66; BASO % 0.2 % (0-6); EOS % 0.7 % (0-6); GRAN % 70.5 % (47-80); HEMATOCRIT 44.8 % (35.0-47.0); HEMOGLOBIN 15.1 gm/dl (11.6-16.0); LYMPH % 24.2 % (16-45); MEAN CORPUSCULAR HEMOGLOBIN 33.7 pg (27-33); MEAN CORPUSCULAR HGB CONC 33.7 g/dl (32-36); MEAN PLATELET VOLUME 10.8 fl (7.4-10.4); MONO % 4.4 % (0-9); PLATELET COUNT 229 K/uL (130-400); RED BLOOD COUNT 4.48 M/uL (3.80-5.40); RED CELL DISTRIBUTION WIDTH 12.9 % (11.5-14.5); URINE APPEARANCE CLEAR; URINE BILIRUBIN NEGATIVE (NEGATIVE); URINE BLOOD NEGATIVE (NEGATIVE); URINE COLOR YELLOW; URINE GLUCOSE (UA) NEGATIVE (NEGATIVE); URINE KETONE NEGATIVE (NEGATIVE); URINE LEUKOCYTE ESTERASE NEGATIVE (NEGATIVE); URINE NITRITE NEGATIVE (NEGATIVE); URINE PROTEIN NEGATIVE (NEGATIVE); URINE UROBILINOGEN 0.2 E.U./dL (0.20 - 1.00); WHITE BLOOD COUNT W/O DIFF 9.5 K/uL (4.2-12.2)
[2019-02-18 16:10] LABS: HCG,QUALITATIVE URINE NEGATIVE (NEGATIVE)
[2019-02-18 16:12] LABS: AMPHETAMINE SCREEN URINE NOT DETECTED; BARBITURATE SCREEN URINE NOT DETECTED; BENZODIAZEPINE SCREEN URINE NOT DETECTED; COCAINE SCREEN URINE NOT DETECTED; METHADONE SCREEN URINE NOT DETECTED; METHAMPHETAMINE SCREEN NOT DETECTED; OPIATE SCREEN URINE NOT DETECTED; PHENCYCLIDINE SCREEN URINE NOT DETECTED; PROPOXYPHENE SCREEN URINE NOT DETECTED; THC SCREEN URINE NOT DETECTED; TRICYCLIC ANTIDEPRESSANT SCRN NOT DETECTED
[2019-02-18 16:13] LABS: OXYCODONE SCREEN URINE NOT DETECTED
[2019-02-18 16:36] LABS: BLOOD UREA NITROGEN 8 mg/dL (6-20); CREATININE 0.5 mg/dL (0.5-0.9); EST GLOMERULAR FILTRATION RATE > 60 mL/min
[2019-02-18 16:37] LABS: TOTAL PROTEIN 7.1 g/dL (6.6-8.7)
[2019-02-18 16:39] LABS: GLUCOSE,RANDOM 100 mg/dL (74-109)
[2019-02-18 16:42] LABS: ALB/GLOB RATIO 1.6 (1.1-1.8); ALBUMIN 4.4 g/dL (4.0-5.0); ALKALINE PHOSPHATASE 71 U/L (35-104); ALT/SGPT 26 U/L (<33); AST/SGOT 21 U/L (10.0-35.0)
== END 2019-02-18 16:54 | disposition home or self-care (01) ==
LOC: ER 15:28
DX: B34.9 Viral infection, unspecified (principal); R19.7 Diarrhea, unspecified; R11.0 Nausea; R42 Dizziness and giddiness; F17.210 Nicotine dependence, cigarettes, uncomplicated
CPT/HCPCS: 80053; 80305; 81003; 81025; 85025; 99283